=== PATIENT | female | born 1990 | race Caucasian/White ===

== ENCOUNTER 2022-02-02 12:50 | Outpatient (CLI) | payer MEDICAID, SELFPAY ==
--- NOTE | 2022-02-02 13:00 | CRLHL7_ITS ---
For Patients: As a result of the Cures Act, medical imaging exams and procedure reports are released immediately into your electronic medical record. You may view this report before your referring provider. If you have questions, please contact your health care provider. INDICATION: First trimester scan, establish dates. COMPARISON: None. TECHNIQUE: Real-time bridges-scale imaging of the pelvis was performed. FINDINGS: Sonographic imaging demonstrates a single living intrauterine gestation. The embryo demonstrates a regular cardiac rate measuring 161 beats per minute. The embryo`s crown-rump length measurement of 3.0 cm corresponds to a gestational age of 9 weeks 6 days with a sonographic due date of 09/01/2022. There is a normal-appearing yolk sac. There are no gross abnormalities noted within the embryo at this early state of development. The gestational sac has a normal appearance. There is no evidence of a perigestational hemorrhage. The amount of fluid within the sac appears appropriate for gestational age. The cervix is closed. The myometrium appears normal. The ovaries are of normal size. There are no suspicious fluid collections noted in the cul-de-sac. IMPRESSION: Normal first trimester OB ultrasound exam. Gestational age calculated at 9 weeks 6 days with a sonographic due date of 09/01/2022. Dictated by Jose Cole MD @ 02/02/2022 1:28:47 PM (Electronically Signed)
== END 2022-02-02 12:51 | disposition home or self-care (01) ==
LOC: US 12:52
PROVIDERS: Visit Provider Advanced Practice Midwife
DX: Z34.91 Encounter for supervision of normal pregnancy, unspecified, first trimester (principal); Z3A.09 9 weeks gestation of pregnancy
CPT/HCPCS: 76801

== ENCOUNTER 2022-02-02 15:45 | Outpatient (CLI) | payer MEDICAID, SELFPAY ==
[2022-02-02 19:00] LABS: Chlamydia DNA Amplified* NOT DETECTED (No Detected); GC DNA Amplified* NOT DETECTED (No Detected)
[2022-02-02 19:21] LABS: Hepatitis B Surface Antigen* Negative (Negative)
[2022-02-02 20:20] LABS: HIV 1/2/P24 Combo Screen* Negative (Negative); Hepatitis C Virus Antibody* Negative (Negative)
[2022-02-06 11:43] LABS: Rapid Plasma Reagin (RPR) Non Reactive (Non Reactive)
[2022-02-06 11:49] LABS: Varicella-Zoster Virus Ab, IgG 541.9 IV
[2022-02-06 11:54] LABS: Rubella Antibody IgG 18.6 IU/mL
== END 2022-02-02 15:46 | disposition home or self-care (01) ==
PROVIDERS: Visit Provider Advanced Practice Midwife
DX: Z34.90 Encounter for supervision of normal pregnancy, unspecified, unspecified trimester (principal)
CPT/HCPCS: 86592; 86703; 86762; 86787; 86803; 86850; 86900; 86901; 87086; 87340; 87491; 87591

== ENCOUNTER 2025-05-21 09:02 | Outpatient (CLI) | payer OTHER, SELFPAY ==
--- NOTE | 2025-05-21 09:15 | CRLHL7_ITS ---
For Patients: As a result of the Cures Act, medical imaging exams and procedure reports are released immediately into your electronic medical record. You may view this report before your referring provider. If you have questions, please contact your health care provider. OB ULTRASOUND INDICATION: Dating and viability. TECHNIQUE: Real time grayscale imaging of the fetus was performed. Transvaginal. Transvaginal imaging performed to better demonstrate the endometrium and ovaries. LMP: 03/24/2025. NESTOR by LMP: 12/29/2025. GA: 8 w, 2 d. Previous US: No. CRL: 2.3 cm. 9 w 0 d. NESTOR: 12/24/2025. FHR: 161 BPM. Gestational sac: 3.6 cm. Appears within normal limits. Yolk sac: 4.1 mm. Appears within normal limits. Right ovary: 3.6 x 2.3 x 2.6 cm. Left ovary: 4.3 x 2.5 x 2.8 cm. IMPRESSION: 1. Single living intrauterine measures 9 weeks 0 days with sonographic due date 12/24/2025. 2. Benign bilateral ovarian cysts are present measuring up to 2.5 cm. 3. Incidental vascularity adjacent to the gestational sac is present. This should be followed up at the anatomic survey. Jose Cole M.D. Diagnostic Radiologist [email or web address] AWA/marion [email or web address]/Dictated by: Jose Cole MD @ 05/21/2025 10:39:00 AM (Electronically Signed)
== END 2025-05-21 09:03 | disposition home or self-care (01) ==
LOC: US 09:02
PROVIDERS: Visit Provider Advanced Practice Midwife
DX: O34.81 Maternal care for other abnormalities of pelvic organs, first trimester (principal); N83.11 Corpus luteum cyst of right ovary; N83.12 Corpus luteum cyst of left ovary; Z3A.09 9 weeks gestation of pregnancy
CPT/HCPCS: 76817